=== PATIENT | female | born 1995 | race Caucasian/White ===

== ENCOUNTER 2022-02-08 16:56 | Emergency (ER) | payer BC, SELFPAY ==
[2022-02-08 17:06] VITALS: BP 127/84; PULSE 84; RESP 16; TEMP 36.4; O2SAT 100
--- NOTE | 2022-02-08 17:25 | ED.GENADULT ---
HPI - General Adult General Chief complaint: Unspecified Stated complaint: NOSE BLEEDING Source: patient Mode of arrival: ambulatory Limitations: no limitations History of Present Illness HPI narrative: 26 y/o female presented for c/o nosebleed, intermittently for 2 weeks. Lasting 30min to hour, has been waking with them, denies trauma or sneezing/blowing nose prior to bleeding. Today she used tampons to stop the bleeding, stating she saturated 2 tampons in 10 minutes. She removed one upon arrival. Bleeding controlled upon arrival. Also reports increased bruising, intermittent lightheadedness and fatigue, and an episode of feeling winded while walking casually at lunch. Reports history of 'slight' anemia not taking med for this. Also reports she has had nosebleeds in the past but denies them being as severe. Not taking blood thinners. Related Data Home Medications Medication Instructions Recorded Confirmed bupropion HCl 150 mg 24 hr tablet, 150 mg PO DAILY 02/08/22 02/08/22 extended release dextroamphetamine-amphetamine 10 10 mg PO DAILY 02/08/22 02/08/22 mg tablet dextroamphetamine-amphetamine ER 10 mg PO DAILY 02/08/22 02/08/22 10 mg 24hr capsule,extend release Allergies Allergy/AdvReac Type Severity Reaction Status Date / Time No Known Allergies Allergy Verified 02/08/22 17:31 Review of Systems Review of Systems: CONSTITUTIONAL: Denies malaise, chills, or fever. EYES: Denies visual changes, redness, or discharge. ENT: Denies rhinorrhea, congestion, sinus pain, and sore throat. CARDIOVASCULAR: Denies chest pain, palpitations, or edema. RESPIRATORY: Denies cough GASTROINTESTINAL: Denies abdominal pain, nausea, vomiting, diarrhea SKIN: Denies rash or itching. MUSCULOSKELETAL: Denies myalgia. NEUROLOGIC: Denies headache. All systems reviewed & are unremarkable except as noted in HPI and below PMFSH Comments At time of signature, agree with nursing past medical, surgical, social and family history. There is no relevant family history pertinent to the presenting complaint Exam Narrative: GENERAL: Well-appearing HEAD: Normocephalic and atraumatic EYES: conjunctivae clear ENT: Left nare with scant sanguinous drainage to anterior aspect, bleeding controlled; Mucous membranes moist. TM pearly carvajal with dull light reflex bilaterally; no tragal tenderness. Oropharynx not erythematous without lesions. No bleeding to posterior pharynx no drooling, no hoarseness, no trismus, uvula midline. CHEST: Clear to auscultation, breath sounds equal. No wheezing, rhonchi, rales, or stridor. No respiratory distress, speaks in full sentences. HEART: Regular rate and rhythm. No murmur heard. SKIN: Warm, dry, scattered bruising to left thigh green/yellow in color each approx 2cm diameter NEURO: Alert and oriented x3. PSYCH: Normal mood and affect Course Course Emergency Course: Patient is aware of diagnosis, understands and agrees to treatment plan. Anticipatory guidance given. Patient agrees to follow-up as directed and is aware of reasons to seek care at the emergency department. Portions of this record may have been created with voice recognition software Level of Care: Express Care Visit Vital Signs Vital signs: Vital Signs Temperature 97.6 F 02/08/22 17:06 Pulse Rate 84 02/08/22 17:06 Respiratory Rate 16 02/08/22 17:06 Blood Pressure 127/84 02/08/22 17:06 Pulse Oximetry 100 02/08/22 17:06 Oxygen Delivery Room Air 02/08/22 17:06 Temperature 97.6 F 02/08/22 17:06 Pulse Rate 84 02/08/22 17:06 Respiratory Rate 16 02/08/22 17:06 Blood Pressure 127/84 02/08/22 17:06 Pulse Oximetry 100 02/08/22 17:06 Oxygen Delivery Room Air 02/08/22 17:06 Reviewed Medical Decision Making MDM Narrative Medical decision making narrative: Exam findings show bleeding controlled at this time; Advised supportive measures. Reviewed s/s to go to the ER. Recommend ENT referral and close f/u wi
== END 2022-02-08 17:54 | disposition home or self-care (01) ==
PROVIDERS: Emergency Provider Nurse Practitioner Family
DX: R04.0 Epistaxis (principal); F90.9 Attention-deficit hyperactivity disorder, unspecified type
CPT/HCPCS: 99213; G0463